=== PATIENT | female | born 1955 | race African-American/Black ===

== ENCOUNTER 2025-01-05 11:08 | Emergency (ER) | payer MEDICARE ==
[2025-01-05] MEDS ORDERED: methylPREDNISolone Sod Succ/PF 125 MG/2 ML VIAL ONE (11:43)
== END 2025-01-05 11:48 ==
LOC: BURERS 11:08
DX: R21 Rash and other nonspecific skin eruption (principal)
CPT/HCPCS: 96372; 99282; J2919

== ENCOUNTER 2025-05-20 09:24 | Outpatient (CLI) | payer MEDICARE | END 2025-05-20 09:25 | disposition home or self-care (01) | LOC: BURRAD 09:24 | PROVIDERS: ATTEND Internal Medicine Gastroenterology | DX: K59.09 Other constipation (principal) | CPT/HCPCS: 74018 ==

== ENCOUNTER 2025-05-24 09:50 | Outpatient (CLI) | payer MEDICARE | END 2025-05-24 09:51 | disposition home or self-care (01) | LOC: BURRAD 09:50 | PROVIDERS: ATTEND Internal Medicine Gastroenterology | DX: K59.09 Other constipation (principal) | CPT/HCPCS: 74018 ==